=== PATIENT | male | born 1995 | race Two or more races ===

== ENCOUNTER 2020-10-07 02:23 | Emergency (ER) | payer SELFPAY ==
[~2020-10-07] VITALS: Ht 170.2 cm; Wt 59.0 kg
[2020-10-07 03:53] VITALS: BP 123/72
[2020-10-07 03:58] LABS: Basophils # (auto) 0.1 10 ^3/uL (0-0.2); Basophils % (auto) 0.3 % (0.0-2.0); Eosinophils # (auto) 0 10 ^3/uL (0-0.8); Eosinophils % (auto) 0.2 % (0.0-7.0); Hematocrit 47.7 % (41.0-53.0); Hemoglobin 16.5 g/dL (13.5-17.5); Lymphocytes % (auto) 11.5 % (10.0-50.0); Mean Corpuscular Hemoglobin 30.8 pg (28.0-32.0); Mean Corpuscular Hgb Conc. 34.5 g/dL (32.0-36.0); Mean Corpuscular Volume 89.2 fL (80.0-100.0); Monocytes # (auto) 0.9 10 ^3/uL (0-1.3); Monocytes % (auto) 5.1 % (0.0-12.0); Neutrophils # (auto) 14.4 10 ^3/uL (1.6-8.6); Neutrophils % (auto) 82.9 % (37.0-80.0); Nucleated Red Blood Cells % 0.1 %; Red Blood Cells 5.35 10^6/uL (4.5-5.90); Red Cell Distribution Width 13.8 % (11.8-14.3); White Blood Cell 17.3 10^3/uL (4.4-10.8)
[2020-10-07 04:21] LABS: Albumin 4.4 g/dL (3.4-5.0); Magnesium 2.3 mg/dL (1.6-2.6)
[2020-10-07 04:24] LABS: BUN/Creatinine Ratio 12.2
[2020-10-07 04:26] LABS: Bilirubin, Total 0.4 mg/dL (0.2-1.0); Total Protein 7.8 g/dL (6.4-8.2)
[2020-10-07 04:48] LABS: Salicylate < 1.7 mg/dL (2.8-20.0)
[2020-10-07 04:58] LABS: Acetaminophen < 2.0 ug/mL (10-30)
== END 2020-10-07 06:45 | disposition home or self-care (01) ==
LOC: EDBD 02:23 → ER 02:26
DX: F10.129 Alcohol abuse with intoxication, unspecified (principal); M25.552 Pain in left hip; Y90.9 Presence of alcohol in blood, level not specified; V43.62XA Car passenger injured in collision with other type car in traffic accident, initial encounter; Y93.89 Activity, other specified; Y92.410 Unspecified street and highway as the place of occurrence of the external cause; Y99.8 Other external cause status
CPT/HCPCS: 36415; 70450; 72125; 73502; 80053; 80320; 80329; 83735; 85025

== ENCOUNTER 2022-10-03 00:23 | Emergency (ER) | payer SELFPAY ==
[~2022-10-03] VITALS: Ht 170.2 cm; Wt 63.0 kg
[2022-10-03 03:04] VITALS: BP 143/76
[2022-10-03] MEDS ORDERED: TETANUS-DIPTH-ACEL PERTUSSIS 0.5ML SYR Tdap IM ONE (03:15)
[2022-10-03] MEDS ORDERED: CEPH500C PO (03:16)
== END 2022-10-03 03:35 | disposition home or self-care (01) ==
LOC: ER 00:23
DX: S80.851A Superficial foreign body, right lower leg, initial encounter (principal); X58.XXXA Exposure to other specified factors, initial encounter; Y93.89 Activity, other specified; Y92.89 Other specified places as the place of occurrence of the external cause; Y99.8 Other external cause status
CPT/HCPCS: 90471; 90715

== ENCOUNTER 2024-03-08 06:12 | Emergency (ER) | payer MEDICAID ==
[~2024-03-08] VITALS: Ht 167.6 cm; Wt 80.0 kg
[~2024-03-08 06:12] MED LIST: CEPH500C PO
[2024-03-08 07:27] VITALS: BP 121/77; PULSE 95; RESP 18; TEMP 97.7; O2SAT 98
[2024-03-08] MEDS: HYDROcodone-ACET 5/325MG TAB PO ONE (07:37)
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
[2024-03-08] MEDS ORDERED: IBUP-1456 PO (08:45)
[2024-03-08] MEDS ORDERED: BACL10TA PO (08:45)
== END 2024-03-08 09:06 | disposition home or self-care (01) ==
LOC: ER 06:12
DX: S29.011A Strain of muscle and tendon of front wall of thorax, initial encounter (principal); S83.91XA Sprain of unspecified site of right knee, initial encounter; Z79.1 Long term (current) use of non-steroidal anti-inflammatories (NSAID)
CPT/HCPCS: 71101; 73562